=== PATIENT | female | born 1975 | race African-American/Black ===

== ENCOUNTER 2018-08-13 08:44 | Day surgery (SDC) | payer OTHER ==
[2018-08-11 11:50] VITALS: BMI 24.6
[2018-08-13] MEDS ORDERED: BUPIVACAINE HCL/PF 2.5 MG/ML - 30 ML VIAL IJ ONE (11:11)
[2018-08-13] MEDS ORDERED: oxyCODONE HCL 5 MG TABLET PO PRN ×2 (11:16)
[2018-08-13] MEDS ORDERED: ONDANSETRON 4 MG/2 ML VIAL IVPUSH PRN (11:16)
[2018-08-13] MEDS ORDERED: MIDAZOLAM HCL 2 MG/2 ML SINGLE DOSE VIAL ONE (11:22)
[2018-08-13] MEDS ORDERED: PROPOFOL 20 ML ONE ×2 (11:29→11:33)
[2018-08-13] MEDS ORDERED: LACTATED RINGERS SOLUTION 1,000 ML IV SCH (11:30)
[2018-08-13] MEDS ORDERED: DEXAMETHASONE SOD PHOSPHATE 4 MG/1 ML VIAL ONE (11:32)
[2018-08-13] MEDS ORDERED: KETOROLAC TROMETHAMINE 30 MG/1 ML VIAL ONE (11:32)
[2018-08-13] MEDS ORDERED: ceFAZolin SODIUM 1 GM VIAL ONE (11:35)
[2018-08-13] MEDS ORDERED: LIDOCAINE HCL/PF 2% SDV 5ML VIAL ONE (11:44)
[2018-08-13] MEDS ORDERED: BUPIVACAINE HCL/PF 0.25% (2.5MG/ML) 10 ML VIAL IJ ONE (11:54)
[2018-08-13] MEDS ORDERED: ACETAMINOPHEN 1000 MG/100 ML VIAL (NON FORMULARY) IVPB ONE ×2 (12:03→12:18)
[2018-08-13] MEDS ORDERED: ACETAMINOPHEN INJECTION 100 ML IVPB ONE (12:11)
[2018-08-13 14:31] VITALS: TEMP 97.9
[2018-08-13 14:39] VITALS: PULSE 82
[2018-08-13 14:45] VITALS: BP 110/76
--- NOTE | 2018-08-14 12:13 | OP ---
DATE OF OPERATION: 08/13/2018 LOCATION: [facility]. SURGEON: Bharati Molina MD HANDLE FINISHER: None. PREOPERATIVE DIAGNOSES: 1. Right knee medial and lateral meniscus tear. 2. Right knee cartilage injury. 3. Right knee synovitis. POSTOPERATIVE DIAGNOSES: 1. Right knee medial and lateral meniscus tear. 2. Right knee cartilage injury. 3. Right knee synovitis. PROCEDURE: 1. Right knee arthroscopy, partial meniscectomy of lateral meniscus. CPT code 61066. 2. Right knee arthroscopy with chondroplasty abrasion-plasty. CPT code 27682. 3. Right knee arthroscopy with synovectomy. CPT code 22925. FINDINGS: 1. Medial meniscus anterior horn tear and posterior horn tear. 2. Anterior portion anterior 1/3 tear with posterior horn tear. 3. Synovitis of patellofemoral, medial, lateral, and notch area. 4. Grade 1-2 cartilage injury of medial femoral tibial plateau. 5. ACL and PCL intact. 6. Diffuse grade 2-4 cartilage injury of patella and patellofemoral trochlea. PROCEDURE: Informed consent was obtained. The patient came to the operating room, where the lower extremity was prepped and draped in a sterile fashion. A tourniquet was placed on the upper thigh, but not inflated. Using standard arthroscopic technique, a lateral incision and portal was made to allow for introduction of the camera into the suprapatellar bursa. This was then taken to the medial joint line, where under direct visualization, a medial incision and portal was made. Excessive synovium noted in the medial, lateral and patellofemoral and notch area was removed by an upbiter, shaver and Bovie cautery. This was found to bring in inflammatory tissue into the joint surface, a source of pain and dysfunction. Probing of the medial and lateral meniscus found tears, as described in the findings. These were removed with the upbiter and shaver and taken back to a stable rim. Grade 2 to 3 degenerative changes were treated with a chondroplasty, removing all flaking surfaces with low-setting Bovie along the periphery to prevent further flaking. Grade 4 changes, as noted, were treated with an abrasoplasty, creating a bleeding surface at the bone/cartilage interface. Aggressive debridement with shaver/shekhar created bleeding surface. Micro fracture also done when indicated in findings. All areas of the knee were once again reexamined. The knee was then drained and a single suture was placed in all portals. A sterile dressing was placed and the patient was transferred to the recovery room without complication. The PA listed above was present and assisted at surgery. Their presence was absolutely medically necessary for the completion of the procedure. They helped hold the arthroscopy, pass instruments (and implants when indicated) and the procedure could not have been completed without their assistance. BHARATI MOLINA M.D. [id number]
--- NOTE | 2018-08-17 16:25 | PATH ---
Surgical Pathology Report Patient Name: CATRACHITO TAVARES [facility]. Rec. #: [id number] /Age/Gender: 1975 (Age: 43) / F Account: [id number] Location: [facility] Taken: 08/13/2018 Received: 08/13/2018 Reported: 08/17/2018 Physicians: Parviz Hernández M.D. Specimen(s) Received RIGHT KNEE SHAVINGS Clinical History Right knee internal derangement Final Diagnosis KNEE SHAVINGS, RIGHT, ARTHROSCOPY: FRAGMENTS OF DENSE FIBROCONNECTIVE TISSUE AND REACTIVE SYNOVIUM. Electronically Signed Estelle Aparicio M.D. Gross Description Received in formalin labeled "right knee shavings," is a 0.6 x 0.5 x 0.1 cm aggregate of singh-yellow soft tissue fragments. The specimen is submitted in toto in one cassette. /08/16/201808/16/2018
== END 2018-08-13 14:30 | disposition home or self-care (01) ==
LOC: FASU 08:44
PROVIDERS: ATTEND Orthopaedic Surgery
PROC: 0SBC4ZZ Excision of Right Knee Joint, Percutaneous Endoscopic Approach (ICD-10-PCS; 2018-08-13)
PROC: 0SBC4ZZ Excision of Right Knee Joint, Percutaneous Endoscopic Approach (ICD-10-PCS; 2018-08-13)
PROC: 0SBC4ZZ Excision of Right Knee Joint, Percutaneous Endoscopic Approach (ICD-10-PCS; principal; 2018-08-13 10:30)
DX: S83.241A Other tear of medial meniscus, current injury, right knee, initial encounter (principal); S83.281A Other tear of lateral meniscus, current injury, right knee, initial encounter; S83.8X1A Sprain of other specified parts of right knee, initial encounter; M65.861 Other synovitis and tenosynovitis, right lower leg; X58.XXXA Exposure to other specified factors, initial encounter; Y93.9 Activity, unspecified; Y92.9 Unspecified place or not applicable
CPT/HCPCS: 88304-TC; 94760; J0131

== ENCOUNTER 2022-02-28 07:05 | Day surgery (SDC) | payer OTHER ==
[2022-02-25 15:38] VITALS: BMI 27.8
[2022-02-28] MEDS ORDERED: BUPIVACAINE HCL/PF 2.5 MG/ML - 30 ML VIAL IJ ONE (08:42)
[2022-02-28] MEDS ORDERED: LIDOCAINE HCL 2% 100 MG/5 ML DISP.SYRIN ONE (08:47)
[2022-02-28] MEDS ORDERED: MIDAZOLAM HCL 2 MG/2 ML SINGLE DOSE VIAL ONE (08:48)
[2022-02-28] MEDS ORDERED: PROPOFOL 20 ML ONE (08:48)
[2022-02-28] MEDS ORDERED: ONDANSETRON 4 MG/2 ML VIAL ONE (09:29)
[2022-02-28] MEDS ORDERED: DEXAMETHASONE SOD PHOSPHATE 4 MG/1 ML VIAL ONE (09:29)
[2022-02-28] MEDS ORDERED: ceFAZolin SODIUM 1 GM VIAL ONE (09:29)
[2022-02-28] MEDS ORDERED: KETOROLAC TROMETHAMINE 30 MG/1 ML VIAL ONE (09:29)
[2022-02-28] MEDS ORDERED: oxyCODONE HCL 5 MG TABLET PO PRN ×2 (09:57)
[2022-02-28] MEDS ORDERED: PROMETHAZINE HCL 25 MG/1 ML VIAL IVPUSH PRN (09:57)
[2022-02-28] MEDS ORDERED: ONDANSETRON 4 MG/2 ML VIAL IVPUSH PRN (09:57)
[2022-02-28] MEDS ORDERED: ACETAMINOPHEN 1000 MG/100 ML BAG IVPB ONE (09:58)
[2022-02-28] MEDS ORDERED: FENTANYL CITRATE/PF 50 MCG/ML VIAL ONE ×3 (09:58→10:24)
[2022-02-28] MEDS ORDERED: LACTATED RINGERS SOLUTION 1,000 ML IV SCH (10:00)
[2022-02-28 12:16] VITALS: PULSE 76; RESP 16; TEMP 98.6
[2022-02-28 16:56] VITALS: BP 122/84
== END 2022-02-28 13:00 | disposition home or self-care (01) ==
LOC: FASU 07:05
PROVIDERS: ATTEND Orthopaedic Surgery
PROC: 0SBD4ZZ Excision of Left Knee Joint, Percutaneous Endoscopic Approach (ICD-10-PCS; 2022-02-28)
PROC: 0SBD4ZZ Excision of Left Knee Joint, Percutaneous Endoscopic Approach (ICD-10-PCS; principal; 2022-02-28 09:29)
DX: S83.242A Other tear of medial meniscus, current injury, left knee, initial encounter (principal); S83.282A Other tear of lateral meniscus, current injury, left knee, initial encounter; S83.8X2A Sprain of other specified parts of left knee, initial encounter; M65.862 Other synovitis and tenosynovitis, left lower leg; X58.XXXA Exposure to other specified factors, initial encounter; Y93.9 Activity, unspecified; Y92.9 Unspecified place or not applicable
CPT/HCPCS: 94760

== ENCOUNTER 2024-03-21 20:42 | Emergency (ER) | payer OTHER ==
[2024-03-21 20:53] VITALS: BP 126/78; PULSE 88; RESP 17; TEMP 97.6; BMI 31.1
[2024-03-21] MEDS ORDERED: ACETAMINOPHEN INJECTION 100 ML ONE (21:24)
[2024-03-21] MEDS: ACETAMINOPHEN 1000 MG/100 ML BAG IVPB ONE (21:42)
[2024-03-21 21:45] LABS: BASO % 0.6 % (0-2.0); HEMATOCRIT 45.3 % (32.4-45.2); HEMOGLOBIN 15.2 GM/dL (10.7-15.3); LYMPH % 29.7 % (8-40); MCH 30.2 pg (25.7-33.7); MCHC 33.6 g/dl (32.0-36.0); MEAN CELL VOLUME 89.8 fl (80-96); MEAN PLT VOLUME 7.1 fl (7.5-11.1); MONO % 5.6 % (3.8-10.2); NEUT % 61.1 % (42.8-82.8); PLATELET COUNT 316 10^3/uL (134-434); RBC 5.04 M/mm3 (3.60-5.2); RDW 14.7 % (11.6-15.6); WHITE BLOOD COUNT 10.6 K/mm3 (4.0-10.0)
[2024-03-21 22:14] LABS: ALBUMIN 3.7 g/dl (3.4-5.0); CALCIUM 9.4 mg/dL (8.5-10.1)
[2024-03-21 22:15] LABS: BLOOD UREA NITROGEN 7.7 mg/dL (7-18)
[2024-03-21 22:17] LABS: CREATININE 0.9 mg/dL (0.55-1.3)
[2024-03-21 22:19] LABS: BILIRUBIN,TOTAL 0.3 mg/dL (0.2-1); TOT PROT 7.2 g/dl (6.4-8.2)
[2024-03-21 22:39] LABS: URINE APPEARANCE CLEAR; URINE BILIRUBIN NEGATIVE (NEGATIVE); URINE COLOR YELLOW; URINE GLUCOSE (UA) NEGATIVE (NEGATIVE); URINE KETONE NEGATIVE (NEGATIVE); URINE LEUK ESTERASE NEGATIVE (NEGATIVE); URINE NITRITE NEGATIVE (NEGATIVE); URINE PROTEIN NEGATIVE (NEGATIVE); URINE UROBILINOGEN 0.2 mg/dL (0.2-1.0)
[2024-03-22] MEDS ORDERED: LIDOCAINE 4% PATCH TP ONE (01:28)
[2024-03-22] MEDS: LIDOCAINE 4% PATCH TP ONE (01:35)
[2024-03-22] MEDS ORDERED: LIDOCAINE PATCH REMOVAL MC SCH (22:00)
== END 2024-03-22 01:37 | disposition home or self-care (01) ==
LOC: JER 20:42
DX: R10.9 Unspecified abdominal pain (principal); R11.0 Nausea
CPT/HCPCS: 36415; 74177-TC; 76817-TC; 80053; 81003; 83690; 84702; 84703; 85025; 87086; 93005; 93010; 99285-25; J0131